=== PATIENT | male | born 1950 | race Caucasian/White ===

== ENCOUNTER 2018-03-19 08:49 | Emergency (ER) | payer MEDICARE, BC ==
[2018-03-19 09:06] VITALS: BP 145/96
--- NOTE | 2018-03-19 09:11 | UC ---
Throat Pain/Nasal Alexandr HPI - HPI Summary HPI Summary: 68 y/o male presents to the urgent care c/o nasal congestion and green discharge , sore throat, green PND w/ dry cough for the past 6 days. Sinus pain and Sore throat is 6/10. Nasal discharge at times has blood streaks. He has tried OTC medication w/o any improvement. He just started Mucinex PO for dry cough. Pt denies fever, SOB, wheezing, chest pain, abdominal pain, N/V/D. He returned from [place] last week. - History of Current Complaint Chief Complaint: UCRespiratory Stated Complaint: COUGH,SORE THROAT Time Seen by Provider: 03/19/18 09:08 Hx Obtained From: Patient Onset/Duration: Gradual Onset, Lasting Days - 6 days, Still Present, Worse Since - 2 days Severity: Moderate Pain Intensity: 6 - sinus pain Pain Scale Used: 0-10 Numeric Cough: Nonproductive Associated Signs & Symptoms: Positive: Dysphagia, Sinus Discomfort, Nasal Discharge - Epiglottits Risk Factors Epiglottis Risk Factors: Negative - Allergies/Home Medications Allergies/Adverse Reactions: Allergies Allergy/AdvReac Type Severity Reaction Status Date / Time No Known Allergies Allergy Verified 03/19/18 09:06 Home Medications: Home Medications Atorvastatin* [Lipitor 40 MG*] 40 mg PO 1700 03/19/18 [History Confirmed ] PMH/Surg Hx/FS Hx/Imm Hx Previously Healthy: Yes Endocrine History: Dyslipidemia - Surgical History Surgical History: Yes Surgery Procedure, Year, and Place: rt great toe - Family History Known Family History: Positive: None Family History: CVA - mother, smoked, lived to 77 - Social History Occupation: Retired Lives: With Family Alcohol Use: Occasionally Alcohol Amount: 2 glasses of wine/ day Substance Use Type: None Smoking Status (MU): Never Smoked Tobacco - Immunization History Immunizations Comment: Recently got the influenza vaccines 1 month ago Review of Systems Constitutional: Fever - subjective at home, Chills Skin: Negative Eyes: Negative ENT: Sore Throat, Nasal Discharge - green, Sinus Congestion, Sinus Pain/ Tenderness, Other - moderate green PND Respiratory: Cough - dry Cardiovascular: Negative Gastrointestinal: Negative Genitourinary: Negative Motor: Negative Neurovascular: Negative Musculoskeletal: Negative Neurological: Negative Psychological: Negative Is Patient Immunocompromised?: No All Other Systems Reviewed And Are Negative: Yes Physical Exam - Summary Physical Exam Summary: Vitals: reviewed General: Well developed, well-nourished male patient with NAD. Head and face: Normocephalic and atraumatic, Positive tenderness over the frontal and maxillary sinuses.. Eyes: PERRLA, EOMI x 2. Normal conjunctiva. No eye discharge. ENT: Ears and TM with normal limits. Nose: edematous and erythematous nasal mucosa with with green discharge and erythematous mucosa. Pharynx with erythema, no B/L tonsil enlargement, no exudate. Moderate +PND green Neck: Supple, no JVD, no carotid bruits and no lymphadenopathy. Lungs: clear, no rales, no rhonchi, no wheezes. CVS: RRR, S1 and S2 present no murmurs or gallops appreciated. Abdomen: soft nontender with positive bowel sounds. Extremities: no edema noted. Neuro: WNL. Skin: warm and dry Triage Information Reviewed: Yes Vital Signs: Initial Vital Signs Temp 98.0 F 03/19/18 08:59 Pulse 85 03/19/18 08:59 Resp 18 03/19/18 08:59 BP 145/96 03/19/18 08:59 Pulse Ox 98 03/19/18 08:59 Throat Pain/Nasal Course/Dx - Course Course Of Treatment: 68 y/o male presents to the urgent care c/o nasal congestion and green discharge, sore throat, green PND w/ dry cough for the past 6 days. Sinus pain and Sore throat is 6/10. Nasal discharge at times has blood streaks. He has tried OTC medication w/o any improvement. He just started Mucinex PO for dry cough. Pt denies fever, SOB, wheezing, chest pain, abdominal pain, N/V/D. He returned from an [place] tour last week. Hx obtained. Pt w/ acute bacterial sinusitis on examination. Pt with 6 days of symptoms getting worse. Pt Rx Augmentin PO, and flonase nasal spray. Advised to continue w/ Mucinex PO for cough. Discharge instructions explained to Pt. Advised to Return to the clinic or PCP if symptoms do not improve. Pt's BP is elevated today advised to decrease salt in diet, monitor BP and f/u with PCP for further management. Pt understood and agreed with plan of care. - Differential Dx/Diagnosis Differential Diagnosis/HQI/PQRI: Influenza, Laryngitis, Pharyngitis, Sinusitis, URI Provider Diagnoses: 1- Acute bacterial sinusitis. 2- Cough. 3- Elelvated BP w/ o Hx of HTN Discharge - Sign-Out/Discharge Documenting (check all that apply): Patient Departure - d/c home All imaging exams completed and their final reports reviewed: No Studies - Discharge Plan Condition: Stable Disposition: HOME Prescriptions: Amoxicillin/Clavulanate TAB* [Augmentin TAB 875*] 875 mg PO BID #20 tab Fluticasone NASAL SPRAY 50MCG* [Flonase NASAL SPRAY 50MCG*] 2 spray BOTH NARES DAILY #1 btl Patient Education Materials: Sinusitis (ED), Low-Sodium Diet (ED) Referrals: Bryce William MD [Primary Care Provider] - 3 Days Additional Instructions: 1- Please increase fluid intake and rest. take full course of antibiotic to avoid resistance. Increase fluid intake, eat well, rest, avoid strenuous exercise 2-Use Flonase as directed to help drain fluid. Also buy saline drops to clear sinuses 3- continue taking Mucinex PO to alleviate cough. 4-Return to the clinic or PCP if symptoms do not improve for further management and treatment 5-Pt's BP is elevated today advised to decrease salt in diet, monitor BP and f/ u with PCP for further management. - Billing Disposition and Condition Condition: STABLE Disposition: Home
== END 2018-03-19 09:38 | disposition home or self-care (01) ==
LOC: UCEAST 08:49
DX: E78.5 Hyperlipidemia, unspecified (principal); J01.90 Acute sinusitis, unspecified; B96.89 Other specified bacterial agents as the cause of diseases classified elsewhere; R05 Cough; R03.0 Elevated blood-pressure reading, without diagnosis of hypertension
CPT/HCPCS: 99212; G0463

== ENCOUNTER 2019-05-13 08:17 | Emergency (ER) | payer MEDICARE, BC ==
[2019-05-13 08:38] VITALS: BP 140/74
--- NOTE | 2019-05-13 08:38 | UC ---
Hand/Wrist HPI - HPI Summary HPI Summary: Patient is 69-year-old male presenting with right thumb pain x5 days. States he was preparing a turkey last Tuesday when he noticed a paper cut on his thumb burning. States he washed the cut out that day with soap and water and applied alcohol to it. Patient states the next day he noticed increasing thumb pain which has gradually worsened. He describes pain has feeling as though he hit his thumb with a hammer. States pain is worse with flexion and palpation. Patient states the cut has healed but the pain has persisted. States his is concerned for cellulitis. He denies drainage and bleeding. Denies decreased range of motion. Denies decreased sensation. Denies redness. States it "might feel slightly warmer than the other thumb." Denies nausea and vomiting. Denies fever and chills. Notes "ever so slight swelling of the thumb joint." Denies history of arthritis and gout. Denies trauma or injury to the thumb. Patient is also right-handed. - History Of Current Complaint Stated Complaint: THUMB PAIN Hx Obtained From: Patient Onset/Duration: Gradual Onset, Lasting Days Severity Currently: Moderate Pain Intensity: 7 Pain Scale Used: 0-10 Numeric - Allergies/Home Medications Allergies/Adverse Reactions: Allergies Allergy/AdvReac Type Severity Reaction Status Date / Time No Known Allergies Allergy Verified 05/13/19 08:32 PMH/Surg Hx/FS Hx/Imm Hx Previously Healthy: Yes Endocrine History: Dyslipidemia - Surgical History Surgical History: Yes Surgery Procedure, Year, and Place: rt 2015 - Family History Known Family History: Positive: None, Other - CVA - mother, smoked, lived to 77 Family History: CVA - mother, smoked, lived to 77 - Social History Lives: With Family Alcohol Use: Daily Alcohol Amount: 1 glass of wine/ day Substance Use Type: None Smoking Status (MU): Never Smoked Tobacco - Immunization History Immunizations Comment: Recently got the influenza vaccines 1 month ago Review of Systems All Other Systems Reviewed And Are Negative: Yes Constitutional: Positive: Negative. Negative: Fever, Chills Skin: Positive: Negative. Negative: Rash, Bruising Respiratory: Positive: Negative Cardiovascular: Positive: Negative Gastrointestinal: Positive: Negative. Negative: Vomiting, Nausea Neurovascular: Positive: Negative Musculoskeletal: Positive: Arthralgia - R thumb, Edema - R thumb. Negative: Decreased ROM Neurological: Positive: Negative. Negative: Paresthesia, Numbness Physical Exam Triage Information Reviewed: Yes Appearance: Well-Appearing, No Pain Distress, Well-Nourished Vital Signs: Initial Vital Signs Temp 97.5 F 05/13/19 08:33 Pulse 63 05/13/19 08:33 Resp 16 05/13/19 08:33 BP 140/74 05/13/19 08:33 Pulse Ox 98 05/13/19 08:33 Vital Signs Reviewed: Yes Eyes: Positive: Conjunctiva Clear ENT: Positive: Hearing grossly normal Neck: Positive: Supple Respiratory Exam: Normal Respiratory: Positive: Lungs clear, Normal breath sounds, No respiratory distress Cardiovascular Exam: Normal Cardiovascular: Positive: RRR, Pulses Normal, Brisk Capillary Refill Musculoskeletal: Positive: Strength Intact, ROM Intact, No Edema, Other: - mild tenderness to palpation of medial IP joint of R thumb Neurological Exam: Other - sensation grossly intact Neurological: Positive: Alert Psychological: Positive: Age Appropriate Behavior Skin Exam: Normal - no erythema or eccymosis Diagnostics - Radiology R thumb Radiology Interpretation Completed By: Radiologist Summary of Radiographic Findings: IMPRESSION: 1. No fracture or traumatic malalignment of the right thumb. 2. No radiopaque foreign body. Hand/Wrist Course/Dx - Course Course Of Treatment: Discussed negative thumb radiograph with patient. Informed him there are no signs of infection of the thumb. Instructed to rest the thumb, ice, and take ibuprofen for pain relief. Instructed to follow up with PCP or ortho if pain persists. Patient voiced understanding and agreed with treatment plan. - Differential Dx/Diagnosis Provider Diagnosis: Pain of right thumb Discharge ED - Sign-Out/Discharge Documenting (check all that apply): Patient Departure All imaging exams completed and their final reports reviewed: Yes - Discharge Plan Condition: Stable Disposition: HOME Patient Education Materials: Arthralgia (ED) Referrals: Bryce William MD [Primary Care Provider] - If Needed Gerald Fried MD [Medical Doctor] - If Needed Additional Instructions: As discussed, the xray of your thumb was normal today. There is no sign of a skin infection. Rest and ice the thumb to help relieve pain. You may also take ibuprofen as directed for pain relief. Follow up with your PCP or the referral listed below if pain does not resolve. - Billing Disposition and Condition Condition: STABLE Disposition: Home - Attestation Statements Provider Attestation: I was available for consult. This patient was seen by the JEAN. The patient was not presented to, seen by, or examined by me. -Alejandro
== END 2019-05-13 09:45 | disposition home or self-care (01) ==
LOC: UCEAST 08:17
DX: M79.644 Pain in right finger(s) (principal)
CPT/HCPCS: 99211; G0463